=== PATIENT | female | born 1970 | race Caucasian/White ===

== ENCOUNTER 2025-04-15 19:41 | Emergency (ER) | payer BC ==
[~2025-04-15] VITALS: Ht 167.6 cm; Wt 124.7 kg
[2025-04-15] MEDS ORDERED: HYDRALAZINE HYD50 MG PO (20:04)
[2025-04-15] MEDS ORDERED: VALSARTAN-HCTZ1 EAC3 PO (20:04)
[2025-04-15] MEDS ORDERED: METFORMIN XR500 MG PO (20:04)
[2025-04-15] MEDS ORDERED: AMLODIPINE BESYL5 MG PO (20:04)
[2025-04-15] MEDS ORDERED: SERTRALINE HYD100 MG PO (20:05)
[2025-04-15] MEDS ORDERED: METOPROLOL SUCC25 M2 PO (20:05)
[2025-04-15] MEDS ORDERED: CEPHALEXIN500 M1 PO (20:25)
[2025-04-15] MEDS ORDERED: Tdap Vaccine 0.5 ML SYR (Adult Vaccine) IM ONE (20:30)
[2025-04-15] MEDS ORDERED: CEPHALEXIN 500 MG CAP PO ONE (20:30)
== END 2025-04-15 20:54 | disposition home or self-care (01) ==
LOC: ED 19:41
DX: S91.332A Puncture wound without foreign body, left foot, initial encounter (principal); I10 Essential (primary) hypertension; Z79.899 Other long term (current) drug therapy; W22.8XXA Striking against or struck by other objects, initial encounter; Y93.89 Activity, other specified; Y92.89 Other specified places as the place of occurrence of the external cause; Y99.8 Other external cause status

== ENCOUNTER 2025-04-15 22:20 | Emergency (ER) | payer BC ==
[~2025-04-15 22:20] MED LIST: AMLODIPINE BESYL5 MG PO; CEPHALEXIN500 M1 PO; HYDRALAZINE HYD50 MG PO; METFORMIN XR500 MG PO; METOPROLOL SUCC25 M2 PO; SERTRALINE HYD100 MG PO; VALSARTAN-HCTZ1 EAC3 PO
[2025-04-15] MEDS ORDERED: SODIUM CHLORIDE 0.9% 1,000 ML IV ONE (22:25)
[2025-04-15 22:35] LABS: HEMATOCRIT 44.7 % (37.0-47.0); MEAN CELL VOLUME 90.3 fl (81.0-99.0); MEAN CORPUSCULAR HGB 29.1 pg (27.0-31.0); MEAN CORPUSCULAR HGB CONC 32.2 g/dl (33.0-37.0); MEAN PLATELET VOLUME 9.2 fl (9.6-12.3); PLATELET COUNT AUTOMATED 373 10*3/uL (130-400); RED BLOOD COUNT 4.95 10*6/uL (4.10-5.10); RED CELL DISTRI WIDTH 13.7 % (0-14.5); WHITE BLOOD COUNT 9.2 10*3/uL (4.8-10.8)
[2025-04-15 22:38] LABS: MANUAL DIFF REFLEX YES
[2025-04-15] MEDS ORDERED: Ondansetron Hydrochloride 4 MG/2 ML VIAL IV ONE (22:45)
[2025-04-15 22:56] LABS: PLATELET SUFFICIENCY NORMAL (NORMAL); TOTAL CELLS COUNTED 100 #CELLS
[2025-04-15 23:02] LABS: ALKALINE PHOSPHATASE 76 U/L (46-116); BUN 16 mg/dl (9-23); CHLORIDE 102 mmol/L (98-107); CPK 130 U/L (34-171); POTASSIUM 3.5 mmol/L (3.4-5.1); SGPT/ALT 24 U/L (5-49); TOTAL PROTEIN 7.2 gm/dL (6.0-8.0)
== END 2025-04-16 01:32 | disposition home or self-care (01) ==
LOC: ED 22:20
PROVIDERS: Emergency Medicine
DX: R55 Syncope and collapse (principal); I10 Essential (primary) hypertension; Z79.899 Other long term (current) drug therapy; Z98.890 Other specified postprocedural states